=== PATIENT | male | born 1975 | race Hispanic/Latino ===

== ENCOUNTER 2018-10-25 21:49 | Observation (INO) | payer OTHER ==
[~2018-10-25] VITALS: Ht 172.7 cm; Wt 111.8 kg
[2018-10-26 00:01] LABS: BASOPHILS % (AUTO) 0.8 % (0.0-5.0); EOSINOPHILS % (AUTO) 1.7 % (0.0-8.0); HEMATOCRIT 45.6 % (42-54); LYMPHOCYTES % (AUTO) 28.3 % (21.0-51.0); MEAN CORPUSCULAR HEMOGLOBIN 30.1 pg (27.0-33.0); MEAN CORPUSCULAR HGB CONC 33.3 g/dL (32.0-36.0); MEAN CORPUSCULAR VOLUME 90.3 fL (79-99); MONOCYTES % (AUTO) 8.7 % (3.0-13.0); NEUTROPHILS % (AUTO) 60.5 % (40.0-77.0); NUCLEATED RED BLOOD CELLS 0.1 % (0.0-0.19); PLATELET COUNT (AUTO) 236 K/uL (130-400); RED BLOOD CELL COUNT(AUTO) 5.05 MIL/uL (4.50-6.20); RED CELL DISTRIBUTION WIDTH 13.5 % (11.0-15.5); WHITE BLOOD COUNT (AUTO) 10.7 K/uL (4.8-10.8)
[2018-10-26 00:07] LABS: CREATININE 1.1 mg/dL (0.5-1.5); POTASSIUM 3.9 mmol/L (3.5-5.1)
[2018-10-26 00:18] LABS: ALBUMIN 3.6 g/dL (3.5-5.0); BILIRUBIN,TOTAL 0.3 mg/dL (0.2-1.0); TOTAL PROTEIN, SERUM 7.6 g/dL (6.0-8.3)
[2018-10-26] MEDS ORDERED: CLOPIDOGREL BISULFATE 300 MG TAB ONE (00:30)
[2018-10-26 00:33] LABS: B-TYPE NATRIURETIC PEPTIDE 170 pg/mL (0-100)
[2018-10-26 00:43] LABS: INR 0.98 (0.85-1.15); PARTIAL THROMBOPLASTIN TIME 28.5 SEC (26.3-35.5); PROTHROMBIN TIME 10.3 SEC (9.6-11.6)
[2018-10-26] MEDS ORDERED: HEPARIN SODIUM 5000UNIT/ML 1ML VIAL ONE (01:23)
--- NOTE | 2018-10-26 01:45 | NUR ---
ASSESSMENT PATIENT TRANSFERRED FROM [place] [id number]. DX: NEW ONSET A-FIB. PATIENT DENIES PAIN, SHORTNESS OF BREATH AND PALPITATIONS. ON ROOM AIR. RESPIRATIONS UNLABORED. A-FIB HR 80'S. SEE DOCUMENTATION FOR FULL ASSESSMENT. CALL LIGHT WITHIN REACH. INSTRUCTED PATIENT TO CALL IF ASSISTANCE IS NEEDED.
[2018-10-26 02:01] VITALS: BP 133/70
[2018-10-26] MEDS ORDERED: OZEMPIC SQ (02:49)
[2018-10-26] MEDS ORDERED: OMEP40CA37 PO (02:49)
[2018-10-26] MEDS ORDERED: METO100T14 PO (02:49)
[2018-10-26] MEDS ORDERED: LISI-613 PO (02:49)
[2018-10-26] MEDS ORDERED: METF500T7 PO (02:49)
[2018-10-26] MEDS ORDERED: BUSP5TAB3 PO (02:49)
[2018-10-26 03:07] LABS: CREATININE 1.1 mg/dL (0.5-1.5); PHOSPHORUS 3.3 mg/dL (2.5-4.9); POTASSIUM 3.8 mmol/L (3.5-5.1)
[2018-10-26 03:08] LABS: HEMATOCRIT 43.2 % (42-54); MEAN CORPUSCULAR HEMOGLOBIN 30.7 pg (27.0-33.0); MEAN CORPUSCULAR HGB CONC 34.1 g/dL (32.0-36.0); MEAN CORPUSCULAR VOLUME 90.1 fL (79-99); NUCLEATED RED BLOOD CELLS 0.1 % (0.0-0.19); PLATELET COUNT (AUTO) 224 K/uL (130-400); RED CELL DISTRIBUTION WIDTH 13.5 % (11.0-15.5); WHITE BLOOD COUNT (AUTO) 12.3 K/uL (4.8-10.8)
[2018-10-26 03:14] LABS: INR 0.99 (0.85-1.15); PROTHROMBIN TIME 10.4 SEC (9.6-11.6)
[2018-10-26 03:37] VITALS: BP 128/85
--- NOTE | 2018-10-26 04:38 | NUR ---
INFORMED BY BENEFITS ADVISOR, SINUS RHYTHM HR 80'S TO 90'S AT 0400.
[2018-10-26] MEDS ORDERED: HEPARIN SODIUM 5000UNIT/ML 1ML VIAL SQ SCH (06:00)
[2018-10-26 07:00] VITALS: BP 130/86
[2018-10-26] MEDS: HEPARIN SODIUM 5000UNIT/ML 1ML VIAL SQ SCH ×2 (09:00→16:06)
[2018-10-26] MEDS ORDERED: METOPROLOL TARTRATE 25 MG TAB PO SCH (09:00)
[2018-10-26 11:00] VITALS: BP 124/76
--- NOTE | 2018-10-26 15:29 | NUR ---
DR. SIMS IS IN TO SEE PATIENT.
[2018-10-26 16:00] VITALS: BP 114/74
[2018-10-26 19:27] VITALS: BP 117/70
[2018-10-26] MEDS ORDERED: METOPROLOL TARTRATE 50 MG TAB PO SCH (21:00)
[2018-10-26] MEDS: METOPROLOL TARTRATE 50 MG TAB PO SCH (22:21)
[2018-10-26] MEDS: BUSPIRONE HCL 5 MG TABLET PO SCH (22:22)
[2018-10-27] VITALS: BP 123/70
[2018-10-27 04:00] VITALS: BP 112/76
[2018-10-27 07:45] VITALS: BP 125/81
[2018-10-27] MEDS ORDERED: LISINOPRIL 20 MG TABLET PO SCH (09:00)
[2018-10-27] MEDS ORDERED: PANTOPRAZOLE SODIUM 40 MG TABLET.DR PO SCH (09:00)
[2018-10-27] MEDS: METOPROLOL TARTRATE 50 MG TAB PO SCH (10:45)
[2018-10-27] MEDS: BUSPIRONE HCL 5 MG TABLET PO SCH (10:45)
[2018-10-27 11:07] VITALS: BP 125/77
--- NOTE | 2018-10-27 12:13 | NUR ---
GAVE PATIENT DC INSTRUCTIONS. DC RIGHT HAND IV. INFORMED PATIENT TO FOLLOW UP TODAY AT [facility] FOR 30 DAY MONITOR. FOLLOW UP WITH DR. SIMS IN 4 WEEKS. PATIENT UNDERSTANDS INSTRUCTIONS.
[2018-11-02] MEDS ORDERED: OZEMPIC 0.5 MG SQ SCH (09:00)
== END 2018-10-27 12:00 | disposition home or self-care (01) ==
LOC: EDH 21:49 → EDHIP 10-26 00:51 → INTOOBSV 10-26 00:51 → 2DH 10-26 01:29
PROVIDERS: ADMIT Internal Medicine Critical Care Medicine; ATTEND Internal Medicine Critical Care Medicine
DX: I48.0 Paroxysmal atrial fibrillation (principal); E11.9 Type 2 diabetes mellitus without complications; E66.9 Obesity, unspecified; I11.9 Hypertensive heart disease without heart failure; E78.5 Hyperlipidemia, unspecified; K21.9 Gastro-esophageal reflux disease without esophagitis; F41.9 Anxiety disorder, unspecified; Z88.0 Allergy status to penicillin; Z79.899 Other long term (current) drug therapy; Z88.8 Allergy status to other drugs, medicaments and biological substances
CPT/HCPCS: 36415 ×2; 71045; 80048; 80053; 82550; 83874; 83880; 84100; 84443; 84484 ×2; 85025; 85027; 85610 ×2; 85730; 93005 ×3; 93306; 99284; G0378 ×35; J1644